=== PATIENT | female | born 1980 | race Caucasian/White ===

== ENCOUNTER 2019-11-23 10:51 | Emergency (ER) | payer OTHER, SELFPAY ==
[~2019-11-23] VITALS: Ht 165.1 cm; Wt 59.0 kg
[2019-11-23 11:06] VITALS: BP 121/81; Ht 165.1 cm; Wt 59.0 kg
== END 2019-11-23 12:22 | disposition home or self-care (01) ==
LOC: ED 10:51
DX: R50.9 Fever, unspecified (principal); R05 Cough; R53.83 Other fatigue; Z20.828 Contact with and (suspected) exposure to other viral communicable diseases
CPT/HCPCS: U0003-CS